=== PATIENT | female | born 1975 | race Caucasian/White ===

== ENCOUNTER 2022-03-31 08:46 | Outpatient (CLI) | payer OTHER, SELFPAY ==
[2022-03-31 09:39] LABS: Partial Thromboplastin Time 27.6 SECONDS (22.3-36.8); Prothrombin Time 12.3 Seconds (11.1-14.7)
== END 2022-03-31 08:47 | disposition home or self-care (01) ==
LOC: ANHSURGERY 08:50
PROVIDERS: Visit Provider Urology
DX: Z01.818 Encounter for other preprocedural examination (principal); N20.0 Calculus of kidney
CPT/HCPCS: 36415; 85610; 85730; 87077; 87086; 87186

== ENCOUNTER 2022-04-14 00:42 | Day surgery (SDC) | payer OTHER, SELFPAY ==
--- NOTE | 2022-03-22 09:47 | P.HP_ITS ---
History of Present Illness History of Present Illness Consent: Risks, benefits, and alternatives have been discussed and questions answered. Patient agrees to proceed with procedure. Chief complaint: Left Renal Stone Narrative: Karena Howell is a 46 year old female who recently underwent evaluation for chronic cystitis. CT imaging of the abdomen and pelvis revealed bilateral renal stones, up to 6 mm on the right and 8 mm on left. After discussion of th erapeutic options she elects for left ESWL. she is aware the risk including, but not limited to, adverse cardiopulmonary events, perinephric hematoma, hematuria and need for additional procedures to clear stone fragments. Review of Systems Cardiovascular: Cardiovascular: Denies chest pain, Denies lightheadedness, Denies palpitations and Denies dyspnea Respiratory: Respiratory: Denies dyspnea Gastrointestinal: Gastrointestinal: Denies diarrhea, Denies nausea and Denies vomiting Genitourinary: Genitourinary: Denies hematuria and Denies dysuria Endocrine: Endocrine: Denies palpitations Exam Const: General: no acute distress Resp: Effort & Inspection: normal respiratory effort GI: Inspection: non-distended GI Palp: No abdominal tenderness and No Guarding due to palpation present (GI) Auscultation: normal bowel sounds Assessment and Plan Assessment and plan (1) Bilateral kidney stones: Code(s): N20.0 - Calculus of kidney Status: Acute Assessment and Plan: * Left ESWL
[2022-03-24 13:00] VITALS: BMI 24.7
--- NOTE | 2022-03-24 13:05 | PC.NURSE ---
Addendum entered by Dang Thakur RN 03/27/22 10:11: PT TO ARRIVE AT 7:30 ON 04/14/22 FOR SURGERY AT 9:30. MAXIMUM 20 OZ OF CLEAR LIQUIDS UNTIL 6:30. Original Note: Report to the Outpatient Waiting Room, entrance under the green pavilion located off [facility], at time 6:00 on date 03/31/22. Planned Procedure Time: 7:30. Time changes happen often and if your time is changed the preop area will call you the afternoon before. - You and your visitor will be asked to self-screen and do not enter if you have any COVID symptoms. - We encourage only one visitor and NO visitors under age 16 are allowed at this time. Your visitor will receive communication by the phone number that is given day of service. - The patient visitor is requested to social distance or may leave the building when not with patient due to restrictions. - A mask is OPTIONAL within the hospital. Patients may have clear liquids (water, carbonated beverages, clear teas, apple juice) until 3 hours prior to surgery (4:30) with a maximum of 20 ounces. - No food from midnight until time of surgery Take the following medications with a SIP of water the morning of surgery: LEXAPRO, BUSPIRONE Medications to discontinue per physician: N/A Date to take last dose: N/A Please no make-up, nail bulgarian, hairspray, perfume, deodorant, or body powder the day of surgery. No jewelry (including any body piercings) or valuables the day of surgery, leave them at home. Please take a shower or bath the night before, or the morning of, surgery with an antibacterial soap. Wear comfortable, loose fitting clothing. - Jewelry must be removed prior to entering the operating room. Rings and piercings that are not removed may be cut off. - The hospital will not accept responsibility for valuables. - Please leave all valuables, including medications, at home the day of surgery. If you are going home after surgery, a licensed test driver must drive you home. - NO public transportation without another adult. - We recommend that an adult stay with you for 24 hours following discharge. - We also recommend that you do not drive, make important decision, drink alcoholic beverages, or take any drugs that were not prescribed by your health care provider for at least 24 hours after your discharge time. Follow any additional instructions given to you from your surgeon. If you or anyone in your household have experienced Covid symptoms in the past week, please notify your surgeon or the nurse liaison at the phone number below for possible testing. Telephone instructions given to YAIR RODRIGUEZ and asked if any additional questions and then verbalized understanding. Patient advised to call surgeon office or pre surgery nurse liaison [phone] if any additional questions.
--- NOTE | 2022-04-06 07:37 | P.HP_ITS ---
History of Present Illness History of Present Illness Consent: Risks, benefits, and alternatives have been discussed and questions answered. Patient agrees to proceed with procedure. Chief complaint: Left Renal Stone Narrative: Karena Howell is a 46 year old female recently underwent evaluation recurred recurrent urinary tract infections. This revealed upper tract urolithiasis. She is known to have stones in the past but never required intervention. After discussion of options she has elected to proceed with simultaneous cystoscopy and left ESWL. She is aware the risk of this including, but not limited to, adverse cardiopulmonary events, persistent stone fragments that would require additional therapy and perinephric hematoma. Review of Systems Cardiovascular: Cardiovascular: Denies chest pain, Denies lightheadedness, Denies palpitations and Denies dyspnea Respiratory: Respiratory: Denies dyspnea Gastrointestinal: Gastrointestinal: Denies diarrhea, Denies nausea and Denies vomiting Genitourinary: Genitourinary: Denies hematuria and Denies dysuria Endocrine: Endocrine: Denies palpitations PMFSH Social History Social History Smoking status: Never smoker Alcohol intake: current Drinks per week: 2 Substance use: never Substance use type: does not use Spiritual care concerns: No Meds Home Medications and Allergies Home Medications Medication Instructions Recorded Confirmed Type buspirone 15 mg tablet 15 mg PO DAILY 03/24/22 03/27/22 History escitalopram oxalate 20 mg tablet 40 mg PO DAILY 03/24/22 03/27/22 History (Lexapro) Allergies Allergy/AdvReac Type Severity Reaction Status Date / Time Penicillins Allergy Unknown Verified 03/27/22 10:11 Exam Const: General: no acute distress Resp: Effort & Inspection: normal respiratory effort GI: Inspection: non-distended GI Palp: No abdominal tenderness and No Guarding due to palpation present (GI) Auscultation: normal bowel sounds Assessment and Plan Assessment and plan (1) Bilateral kidney stones: Code(s): N20.0 - Calculus of kidney Status: Acute Assessment and Plan: * Cysoscopy, left ESWL
--- NOTE | 2022-04-13 14:43 | WPDANESEPPF ---
Anes - Initial Pre Proc Eval Procedure: Operation Date: 04/14/22 09:30 Proposed Procedures p Left Extracorporeal Shock Wave Lithotripsy - Bud Lagunas MD s Cystoscopy - Bud Lagunas MD Date/Time: 04/13/22 14:43 Surgeon: Bud Lagunas MD Pre Op Diagnosis: Left Renal Stone Patient Data Age: 46 Gender: F Height: 1.57 m Weight: 61.24 kg Allergies Allergy/AdvReac Type Severity Reaction Status Date / Time Penicillins Allergy Unknown Verified 03/27/22 10:11 Home Medications Medication Instructions Recorded Confirmed Type buspirone 15 mg tablet 15 mg PO DAILY 03/24/22 03/27/22 History escitalopram oxalate 20 mg tablet 40 mg PO DAILY 03/24/22 03/27/22 History (Lexapro) Patient hx anesthesia problems: none Family hx anesthesia problems: none Results Review: All pre-operative results and documents have been reviewed as part of the pre-operative evaluation. [facility] Past Medical History Medical History (Updated 04/13/22 @ 14:44 by Sheldon Gallego MD) Anxiety Bilateral kidney stones MOISE (obstructive sleep apnea) Social History Social History Smoking status: Never smoker Alcohol intake: current Drinks per week: 2 Substance use: never Substance use type: does not use Living arrangements: with family Spiritual care concerns: No Anes - Eval Final PreProcedure Day of Procedure 04/13/22 14:43 Patient weight: normal Heart: regular rate and rhythm Lungs: clear to auscultation and normal air movement Airway: Mallampati scale class II Neurological: alert and oriented Last oral intake: >/= 8 hours ASA classification: II Emergent: no Anesthetic plan: proceed Anesthesia type and monitoring: general LMA Results Review: All pre-operative results and documents have been reviewed as part of the pre-operative evaluation. Informed Consent: The patient's anesthetic plan and its attendant risks and benefits were discussed with the patient/family/POA. Questions were solicited and answers provided to the satisfaction of the patient/family/POA.
[2022-04-14] VITALS (10 sets, daily range): BP systolic 117–144; BP diastolic 51–82; PULSE 57–67; RESP 14–18; TEMP 36.2–37.1; O2SAT 98–100
--- NOTE | ~2022-04-14 | XR_ITS ---
XR abdomen/kub 1V 04/14/2022 08:29 Indication: Preoperative evaluation for ESWL. Renal stones. Procedure: KUB Comparison: No prior studies for comparison. Findings: There are multiple bilateral renal stones. No gas pattern is nonobstructive. Moderate colon ic fecal loading. There are pelvic phleboliths. Lung bases unremarkable. No acute osseous abnormality . Impression: 1: Bilateral nephrolithiasis. Reviewed, dictated and finalized at location A. ULTING SOLUTION DIRECTOR Impression: 1: Bilateral nephrolithiasis.
[2022-04-14] MEDS: LACTATED RINGERS 1,000 ML 30 ML IV CONT (08:49)
--- NOTE | 2022-04-14 09:02 | WPDHPUPDATE1 ---
History and Physical Update Update Date/Time: 04/14/22 09:02 History and Physical has been reviewed, including an updated exam of the patient. There are NO changes in the patient's condition. Risks, benefits, and alternatives have been discussed and questions answered. Patient agrees to proceed with procedure.
[2022-04-14] MEDS: ceFAZolin 2 GM/D5W 50 ML 2 GM/50 ML BAG IVPB (09:38)
--- NOTE | 2022-04-14 10:14 | W.PM.PROC2 ---
Procedure Note - Detailed Date of Procedure 04/14/22 Pre-op Diagnosis Left Renal Stone Post-op Diagnosis Same Procedure Performed Cystoscopy, left ESWL Surgeon Bud Lagunas MD Anesthesia General Description of Procedure The patient was brought to the operative suite where she was placed in the frog-legged position on the Dornier lithotripter table. Flexible cystoscopy was undertaken with a 16F flexible cystoscopy. Her urethra and bladder neck were endoscopically normal. The bladder mucosa was normal and there was a single, orthotopic ureteral orifice bilaterally. There were no intravesical foreign bodies or neoplasms. The patient was then repositioned in the supine position and the focal point of the lithotriptor was 2 stones in her left kidney each measuring approximately 5 mm. A total of 2500 shocks were delivered at a power setting of 4. There appeared to be excellent fragmentation of the stones. The patient tolerated the procedure well and was taken to the recovery room in good condition. Estimated Blood Loss 0 Drains No Packing No Pathology None sent Complications No immediate complications Condition Stable Disposition PACU
[2022-04-14] MEDS: oxyCODONE HCL (*CRX) 5 MG TAB IR PO (11:43)
== END 2022-04-14 12:21 | disposition home or self-care (01) ==
PROVIDERS: Visit Provider Urology
PROC: (CPT 50590; principal; 2022-04-14 09:30)
PROC: 0TJB8ZZ Inspection of Bladder, Via Natural or Artificial Opening Endoscopic (ICD-10-PCS; CPT 52000; 2022-04-14 09:30)
DX: N20.0 Calculus of kidney (principal); G47.33 Obstructive sleep apnea (adult) (pediatric); F41.9 Anxiety disorder, unspecified
CPT/HCPCS: 50590; 36415; 74018; 85610; 85730; 87077; 87086; 87186; A9270; J0690; J1100; J2250; J2405; J2704; J3010; J7120

== ENCOUNTER 2024-06-10 09:05 | Outpatient (CLI) | payer OTHER, SELFPAY ==
--- NOTE | ~2024-06-10 | XR_ITS ---
XR abdomen/kub 1V Ordering provider: Bud Lagunas MD History: . HISTORY OF KIDNEY STONES YRLY FU . Comparison: None. FINDINGS: BOWEL: Nonobstructive bowel gas pattern. ORGANOMEGALY: None. SIGNIFICANT PATHOLOGIC CALCIFICATIONS: 6 mm Stone in the left kidney. OTHER: No free air is seen under the diaphragm. Pubic symphysitis. IMPRESSION: NO ACUTE ABDOMINAL FINDINGS. Left kidney stone. Reviewed, dictated and finalized at location A. LE END TENON OPERATOR
== END 2024-06-10 09:06 | disposition home or self-care (01) ==
PROVIDERS: Visit Provider Urology
DX: Z87.442 Personal history of urinary calculi (principal)
CPT/HCPCS: 74018